=== PATIENT | female | born 2000 | race Caucasian/White ===

== ENCOUNTER 2019-05-24 16:41 | Observation (INO) | END 2019-05-24 18:13 | disposition home or self-care (01) | LOC: 1NENULAB | PROVIDERS: ADMIT Registered Nurse; ATTEND Registered Nurse ==

== ENCOUNTER → 2019-05-30 01:33 | Observation (INO) | END | disposition home or self-care (01) | LOC: 1NENULAB | PROVIDERS: ADMIT Registered Nurse; ATTEND Registered Nurse ==

== ENCOUNTER → 2019-07-03 12:40 | Observation (INO) ==
[2019-07-03 12:23] LABS: Bilirubin,Urine Negative (Negative); Blood,Urine Negative (Negative); Clarity,Urine Cloudy (Clear); Color,Urine Yellow (Yellow); Glucose,Urine (UA) Normal (Normal); Ketones,Urine Negative (Negative); Leukocyte Esterase,Urine Negative (Negative); Nitrite,Urine Negative (Negative); Protein,Urine Negative (Neg-Trace); Urobilinogen,Urine Normal (Normal)
[2019-07-03 12:26] LABS: Bacteria,Urine None Seen per hpf (None-Few); Hyaline Casts,Urine None Seen per lpf (None-Few); RBC,Urine 0-3 per hpf (0-3); WBC,Urine 0-3 per hpf (0-3)
[2019-07-03 12:34] LABS: Squamous Epithelial Cell,Urine Few per lpf (None-Few)
== END | disposition home or self-care (01) ==
LOC: 1NENULAB
PROVIDERS: ADMIT Registered Nurse; ATTEND Registered Nurse

== ENCOUNTER → 2019-07-07 01:46 | Observation (INO) ==
[2019-07-06 23:57] VITALS: BP 138/71
== END | disposition home or self-care (01) ==
LOC: 1NENULAB
PROVIDERS: ADMIT Student in an Organized Health Care Education/Training Program; ATTEND Student in an Organized Health Care Education/Training Program

== ENCOUNTER 2019-07-14 04:00 | Inpatient (IN) ==
[2019-07-14] MEDS ORDERED: Ondansetron 4 MG/2 ML VIAL IVP PRN (04:43)
[2019-07-14] MEDS ORDERED: Famotidine 20 MG/2 ML VIAL IVP PRN (04:43)
[2019-07-14] MEDS ORDERED: miSOPROStoL 25 MCG TABLET PO PRN (04:43)
[2019-07-14] MEDS ORDERED: Metoclopramide 10 MG/2 ML VIAL IVP PRN (04:43)
[2019-07-14] MEDS ORDERED: *HR* FentaNYL (PF) 100 MCG/2 ML VIAL IVP PRN (04:43)
[2019-07-14] MEDS ORDERED: Azithromycin 500 MG in 0.9 % Sodium Chloride 250 ML IVPB ONE (04:43)
[2019-07-14] MEDS ORDERED: Naloxone 0.4 MG/ML INJ IVP PRN (04:43)
[2019-07-14] MEDS ORDERED: Lidocaine 1% 20 ML MDV INFILT PRN (04:43)
[2019-07-14] MEDS ORDERED: Ringers Solution, Lactated 1,000 ML IVC SCH (04:45)
[2019-07-14] MEDS ORDERED: Oxytocin 20 units/ LR 1000 mL 20 UNIT/1,000 ML BAG IVC SCH ×2 (04:45→22:59)
[2019-07-14 05:01] LABS: Basophils # 0.1 K/mcL (0.0-0.2); Basophils % 0.4 %; Eosinophils # 0.2 K/mcL (0.0-0.6); Eosinophils % 1.2 %; Hematocrit 34.5 % (35.3-44.9); Hemoglobin 11.2 g/dL (11.5-15.4); Immature Granulocytes % 1.5 % (0-4); Lymphocytes # 2.7 K/mcL (0.6-4.6); Lymphocytes % 19.7 %; Mean Corpuscular HGB Conc 32.5 g/dL (31.6-35.5); Mean Corpuscular Hemoglobin 31.5 pg (28.0-33.3); Mean Corpuscular Volume 97.2 fL (83.0-100.0); Mean Platelet Volume 8.8 fL (9.4-12.4); Monocytes # 1.5 K/mcL (0.0-1.3); Monocytes % 10.7 %; Neutrophils # 9.2 K/mcL (1.6-8.9); Platelet Count 352 K/mcL (140-400); Red Blood Count 3.55 M/mcL (3.82-4.97); Red Cell Distribution Width 12.8 % (11.5-14.5); Segmented Neutrophils % 66.5 %; White Blood Count 13.8 K/mcL (4.3-11.1)
[2019-07-14 05:10] LABS: Amphetamine Screen,Urine Negative ng/mL (Cutoff=1000); Barbiturate Screen,Urine Negative ng/mL (Cutoff=200); Benzodiazepines Screen,Urine Negative ng/mL (Cutoff=200); Cannabinoid Screen,Urine Negative ng/mL (Cutoff = 50); Cocaine Screen,Urine Negative ng/mL (Cutoff= 300); Opiate Screen,Urine Negative ng/mL (Cutoff=300); Phencyclidine Screen,Urine Negative ng/mL (Cutoff=25)
[2019-07-14] MEDS ORDERED: Bupivacaine/EPI 1:200k 0.5%PF 10 ML VIAL ONE (09:43)
[2019-07-14] MEDS ORDERED: EPHEDrine 50 MG/ML VIAL IVP PRN ×2 (13:49→13:50)
[2019-07-14] MEDS ORDERED: Epidural Premix (fent/bupiv) 110 ML EP ONE (13:58)
[2019-07-14] MEDS ORDERED: Epidural Premix (fent/bupiv) 110 ML EP SCH (14:00)
[2019-07-14] MEDS ORDERED: Benzocaine/Menthol 56 GM AEROSOL SPRAY TP PRN (22:59)
[2019-07-14] MEDS ORDERED: Ibuprofen 600 MG TABLET PO PRN (22:59)
[2019-07-14] MEDS ORDERED: Lanolin 7 G OINT...G. TP PRN (22:59)
[2019-07-14] MEDS ORDERED: Acetaminophen 325 MG TABLET PO PRN (22:59)
[2019-07-15 06:15] VITALS: BP 121/75
[2019-07-15] MEDS ORDERED: Prenatal Vit/FA 1 EACH TABLET ONE (08:44)
[2019-07-15] MEDS ORDERED: Prenatal Vit/FA 1 EACH TABLET PO SCH (09:00)
== END 2019-07-15 18:00 | disposition home or self-care (01) | DRG 807 ==
LOC: 1NENULAB 04:17 → 1NENUOBS 22:58
PROVIDERS: ADMIT Student in an Organized Health Care Education/Training Program; ATTEND Student in an Organized Health Care Education/Training Program

== ENCOUNTER 2021-01-30 04:00 | Inpatient (IN) ==
[2021-01-30] MEDS ORDERED: Azithromycin 500 MG in 0.9 % Sodium Chloride 250 ML IVPB PRN (05:13)
[2021-01-30] MEDS ORDERED: *HR* Nalbuphine 10 MG/ML AMPUL IV PRN (05:13)
[2021-01-30] MEDS ORDERED: Naloxone 0.4 MG/ML INJ IVP PRN (05:13)
[2021-01-30] MEDS ORDERED: Metoclopramide 10 MG/2 ML VIAL IVP PRN (05:13)
[2021-01-30] MEDS ORDERED: Lidocaine 1% 20 ML MDV INFILT PRN (05:13)
[2021-01-30] MEDS ORDERED: Famotidine 20 MG/2 ML VIAL IVP PRN (05:13)
[2021-01-30] MEDS ORDERED: Ringers Solution, Lactated 1,000 ML IVC SCH (05:15)
[2021-01-30 05:33] LABS: Basophils # 0.1 K/mcL (0.0-0.2); Basophils % 0.6 %; Eosinophils # 0.2 K/mcL (0.0-0.6); Eosinophils % 1.1 %; Hematocrit 34.3 % (35.3-44.9); Hemoglobin 11.2 g/dL (11.5-15.4); Immature Granulocytes % 1.5 % (0-4); Lymphocytes # 2.3 K/mcL (0.6-4.6); Mean Corpuscular HGB Conc 32.7 g/dL (31.6-35.5); Mean Corpuscular Hemoglobin 32.1 pg (28.0-33.3); Mean Corpuscular Volume 98.3 fL (83.0-100.0); Mean Platelet Volume 9.2 fL (9.4-12.4); Monocytes # 1.3 K/mcL (0.0-1.3); Monocytes % 8.9 %; Neutrophils # 10.2 K/mcL (1.6-8.9); Platelet Count 262 K/mcL (140-400); Red Blood Count 3.49 M/mcL (3.82-4.97); Segmented Neutrophils % 71.9 %; White Blood Count 14.2 K/mcL (4.3-11.1)
[2021-01-30 05:37] LABS: Amphetamine Screen,Urine Negative ng/mL (Cutoff=1000); Barbiturate Screen,Urine Negative ng/mL (Cutoff=200); Benzodiazepines Screen,Urine Negative ng/mL (Cutoff=200); Cannabinoid Screen,Urine Negative ng/mL (Cutoff = 50); Cocaine Screen,Urine Negative ng/mL (Cutoff= 300); Opiate Screen,Urine Negative ng/mL (Cutoff=300); Phencyclidine Screen,Urine Negative ng/mL (Cutoff=25)
[2021-01-30] MEDS ORDERED: Oxytocin 20 units/ LR 1000 mL 20 UNIT/1,000 ML BAG IVC SCH (06:00)
[2021-01-30 08:25] LABS: Influenza A PCR Negative (Negative); Influenza B PCR Negative (Negative); Resp. Syncytial Virus PCR Negative (Negative)
[2021-01-30 08:40] LABS: SARS-CoV-2 by PCR (In House) Negative (Negative)
[2021-01-30] MEDS ORDERED: EPHEDrine 50 MG/ML VIAL IVP PRN (10:50)
[2021-01-30] MEDS ORDERED: *HR* FentaNYL (PF) 100 MCG/2 ML VIAL EP ONE (10:50)
[2021-01-30] MEDS ORDERED: Ropivacaine/PF 0.2% 20 ML VIAL EP ONE (11:00)
[2021-01-30] MEDS ORDERED: Epidural Premix (fent/bupiv) 110 ML EP SCH (11:00)
[2021-01-30] MEDS ORDERED: Ropivacaine/PF 0.2% 20 ML VIAL ONE (17:23)
[2021-01-30] MEDS ORDERED: *HR* FentaNYL (PF) 100 MCG/2 ML VIAL ONE (17:23)
[2021-01-31] MEDS ORDERED: Lanolin 7 G OINT...G. TP PRN (00:06)
[2021-01-31] MEDS ORDERED: Oxytocin 20 units/ LR 1000 mL 20 UNIT/1,000 ML BAG IVC ONE (00:06)
[2021-01-31] MEDS ORDERED: Oxytocin 20 units/ LR 1000 mL 20 UNIT/1,000 ML BAG IVC SCH (00:06)
[2021-01-31] MEDS ORDERED: Measles/Mumps/Rubella Vacc 0.5 ML VIAL SQ PRN (00:06)
[2021-01-31] MEDS ORDERED: Ondansetron ODT 4 MG TAB.RAPDIS SL PRN (00:06)
[2021-01-31] MEDS ORDERED: Rho Immune Globulin 1,500 UNIT SYRINGE IM PRN (00:06)
[2021-01-31] MEDS ORDERED: Benzocaine/Menthol 56 GM AEROSOL SPRAY TP PRN (00:06)
[2021-01-31] MEDS: Ibuprofen 600 MG TABLET PO SCH ×4 (02:00→21:45)
[2021-01-31] MEDS: Acetaminophen 325 MG TABLET PO SCH ×4 (02:00→21:46)
[2021-01-31 04:59] LABS: Basophils % 0.2 %; Eosinophils # 0.1 K/mcL (0.0-0.6); Eosinophils % 0.3 %; Hematocrit 29.9 % (35.3-44.9); Hemoglobin 10.2 g/dL (11.5-15.4); Immature Granulocytes % 0.8 % (0-4); Lymphocytes # 1.9 K/mcL (0.6-4.6); Lymphocytes % 9.6 %; Mean Corpuscular HGB Conc 34.1 g/dL (31.6-35.5); Mean Corpuscular Hemoglobin 33.4 pg (28.0-33.3); Mean Platelet Volume 9.4 fL (9.4-12.4); Monocytes # 1.7 K/mcL (0.0-1.3); Monocytes % 8.4 %; Neutrophils # 16.1 K/mcL (1.6-8.9); Platelet Count 237 K/mcL (140-400); Red Blood Count 3.05 M/mcL (3.82-4.97); Segmented Neutrophils % 80.7 %
[2021-01-31] MEDS ORDERED: Prenatal Vit/FA 1 EACH TABLET PO SCH (09:00)
[2021-01-31 22:51] VITALS: BP 102/57; PULSE 89; TEMP 98.5; O2SAT 99
== END 2021-01-31 22:30 | disposition home or self-care (01) | DRG 560 ==
LOC: 1NENULAB 04:15 → 1NENUOBS 23:58
PROVIDERS: ADMIT Student in an Organized Health Care Education/Training Program; ATTEND Student in an Organized Health Care Education/Training Program

== ENCOUNTER 2021-12-31 04:00 | Inpatient (IN) ==
[2021-12-31] MEDS ORDERED: Metoclopramide 10 MG/2 ML VIAL IVP PRN (04:38)
[2021-12-31] MEDS ORDERED: Azithromycin 500 MG in 0.9 % Sodium Chloride 250 ML IVPB PRN (04:38)
[2021-12-31] MEDS ORDERED: Ondansetron 4 MG/2 ML VIAL IVP PRN (04:38)
[2021-12-31] MEDS ORDERED: Naloxone 0.4 MG/ML INJ IVP PRN (04:38)
[2021-12-31] MEDS ORDERED: *HR* FentaNYL (PF) 100 MCG/2 ML VIAL IVP PRN (04:38)
[2021-12-31] MEDS ORDERED: Famotidine 20 MG/2 ML VIAL IVP PRN (04:38)
[2021-12-31] MEDS ORDERED: *HR* Nalbuphine 10 MG/ML AMPUL IV PRN (04:38)
[2021-12-31] MEDS ORDERED: Ringers Solution, Lactated 1,000 ML IVC SCH (04:45)
[2021-12-31] MEDS ORDERED: Oxytocin 30 UNIT/503 ML BAG IVC SCH (04:45)
[2021-12-31 05:41] LABS: Basophils # 0.1 K/mcL (0.0-0.2); Basophils % 0.5 %; Eosinophils # 0.2 K/mcL (0.0-0.6); Hematocrit 32.3 % (35.3-44.9); Hemoglobin 10.6 g/dL (11.5-15.4); Immature Granulocytes % 1.9 % (0-4); Lymphocytes # 2.1 K/mcL (0.6-4.6); Lymphocytes % 14.2 %; Mean Corpuscular HGB Conc 32.8 g/dL (31.6-35.5); Mean Corpuscular Hemoglobin 31.2 pg (28.0-33.3); Mean Platelet Volume 8.9 fL (9.4-12.4); Monocytes # 1.5 K/mcL (0.0-1.3); Monocytes % 10.5 %; Neutrophils # 10.4 K/mcL (1.6-8.9); Platelet Count 309 K/mcL (140-400); Red Cell Distribution Width 12.7 % (11.5-14.5); Segmented Neutrophils % 71.9 %; White Blood Count 14.5 K/mcL (4.3-11.1)
[2021-12-31] MEDS ORDERED: EPHEDrine 50 MG/ML VIAL IVP PRN (06:49)
[2021-12-31] MEDS ORDERED: Epidural Premix (fent/bupiv) 110 ML EP SCH (07:00)
[2021-12-31] MEDS ORDERED: Ropivacaine/PF 0.2% 20 ML VIAL EP ONE (07:37)
[2021-12-31] MEDS ORDERED: *HR* FentaNYL (PF) 100 MCG/2 ML VIAL EP ONE (07:37)
[2021-12-31] MEDS ORDERED: Ropivacaine/PF 0.2% 20 ML VIAL ONE (10:52)
[2021-12-31] MEDS ORDERED: *HR* FentaNYL (PF) 100 MCG/2 ML VIAL ONE (10:52)
[2021-12-31 12:15] LABS: Amphetamine Screen,Urine Negative ng/mL (Cutoff=1000); Barbiturate Screen,Urine Negative ng/mL (Cutoff=200); Benzodiazepines Screen,Urine Negative ng/mL (Cutoff=300); Cannabinoid Screen,Urine Negative ng/mL (Cutoff = 50); Cocaine Screen,Urine Negative ng/mL (Cutoff= 300); Opiate Screen,Urine Negative ng/mL (Cutoff=300); Phencyclidine Screen,Urine Negative ng/mL (Cutoff=25)
[2021-12-31] MEDS ORDERED: OXYTOCIN/RINGERS LACTATE 10 UNIT/166.6 ML BAG IVC ONE (14:01)
[2021-12-31] MEDS ORDERED: Measles/Mumps/Rubella Vacc 0.5 ML VIAL SQ PRN (14:01)
[2021-12-31] MEDS ORDERED: Rho Immune Globulin 1,500 UNIT SYRINGE IM PRN (14:01)
[2021-12-31] MEDS ORDERED: Ondansetron ODT 4 MG TAB.RAPDIS SL PRN (14:01)
[2021-12-31] MEDS ORDERED: Lanolin 7 G OINT...G. TP PRN (14:01)
[2021-12-31] MEDS ORDERED: Benzocaine/Menthol 56 GM AEROSOL SPRAY TP PRN (14:01)
[2021-12-31] MEDS: Ibuprofen 600 MG TABLET PO SCH ×2 (16:05→22:13)
[2021-12-31] MEDS: Acetaminophen 325 MG TABLET PO SCH ×2 (16:05→22:35)
[2021-12-31 22:58] VITALS: O2SAT 97
[2022-01-01] MEDS: Acetaminophen 325 MG TABLET PO SCH (04:11)
[2022-01-01] MEDS: Ibuprofen 600 MG TABLET PO SCH (04:11)
[2022-01-01 04:35] LABS: Basophils # 0.1 K/mcL (0.0-0.2); Basophils % 0.4 %; Eosinophils # 0.2 K/mcL (0.0-0.6); Hematocrit 28.5 % (35.3-44.9); Hemoglobin 9.2 g/dL (11.5-15.4); Immature Granulocytes % 1.6 % (0-4); Lymphocytes # 2.4 K/mcL (0.6-4.6); Lymphocytes % 14.7 %; Mean Corpuscular HGB Conc 32.3 g/dL (31.6-35.5); Mean Platelet Volume 8.9 fL (9.4-12.4); Monocytes # 1.7 K/mcL (0.0-1.3); Monocytes % 10.4 %; Neutrophils # 11.8 K/mcL (1.6-8.9); Platelet Count 261 K/mcL (140-400); Red Blood Count 2.97 M/mcL (3.82-4.97); Red Cell Distribution Width 12.8 % (11.5-14.5); Segmented Neutrophils % 71.9 %; White Blood Count 16.4 K/mcL (4.3-11.1)
[2022-01-01 07:11] VITALS: BP 114/64; PULSE 70; TEMP 98.1
[2022-01-01] MEDS ORDERED: Prenatal Vit/FA 1 EACH TABLET PO SCH (09:00)
== END 2022-01-01 13:39 | disposition home or self-care (01) | DRG 560 ==
LOC: 1NENULAB 04:34 → 1NENUOBS 15:44
PROVIDERS: ADMIT Student in an Organized Health Care Education/Training Program; ATTEND Student in an Organized Health Care Education/Training Program